=== PATIENT | female | born 1990 | race Caucasian/White ===

== ENCOUNTER 2017-03-13 18:32 | Emergency (ER) | payer OTHER ==
[2017-03-13 18:50] VITALS: BP 137/78; PULSE 77; TEMP 98.2; BMI 39.1
--- NOTE | 2017-03-13 19:56 | PDOC ---
History of Present Illness - General Chief Complaint: Pain Stated Complaint: STOMACH PAIN/irregular period/heavy bleeding Time Seen by Provider: 03/13/17 19:56 History Source: Patient - History of Present Illness Initial Comments: 03/13/17 20:10 CC: Vaginal Bleed Patient is a 26 y.o. female with no reported PMH who presents today c/o a 2 month h/o vaginal spotting (1 pad/hour) the week after her period. Patient states her periods are regular (every 30 days) and usually last a week. Patient denies any shortness of breath, lightheadedness or weakness. Patient states a concern that she had Ovarian CA (mother has h/o breast cancer) prompting her visit to the ED. Surgical: none FH: Breast CA (mother) Social: (-) nicotine, (-) 3-4 drinks/monthly), (-) marijana/cocaine/heroin PMD: None NKDA Past History - Past Medical History Allergies/Adverse Reactions: Allergies Allergy/AdvReac Type Severity Reaction Status Date / Time No Known Allergies Allergy Verified 03/13/17 18:50 Home Medications: Ambulatory Orders Vit/Iron Fumarate/FA [ Tablet] 1 each PO DAILY 09/28/15 Ferrous Sulfate 1 tab PO DAILY 10/04/15 Ibuprofen [Motrin -] 400 mg PO QID #28 tablet 10/08/15 Ibuprofen [Motrin -] 600 mg PO QID #28 tablet 10/08/15 Asthma: No Cancer: No Cardiac Disorders: No Diabetes: No HTN: No Seizures: No Thyroid Disease: No - Immunization History Immunization Up to Date: Yes - Suicide/Smoking/Psychosocial Hx Smoking History: Never smoked Have you smoked in the past 12 months: No Information on smoking cessation initiated: No Hx Alcohol Use: No Drug/Substance Use Hx: No Substance Use Type: None Hx Substance Use Treatment: No *Physical Exam - Vital Signs Last Vital Signs Temp Pulse Resp BP Pulse Ox 98.2 F 77 18 137/78 100 03/13/17 18:46 03/13/17 18:46 03/13/17 18:46 03/13/17 18:46 03/13/17 18:46 - Physical Exam General Appearance: Yes: Nourished, Appropriately Dressed, Obese HEENT: positive: EOMI, PRATIBHA, Other (Hirsuitism) Neck: positive: Trachea midline, Supple Respiratory/Chest: positive: Lungs Clear, Normal Breath Sounds Cardiovascular: positive: Regular Rhythm, Regular Rate, S1, S2 Female Pelvic Exam: positive: cervical os closed, vaginal bleeding (minimal amount of dark red blood appreciated in vaginal vault, cervical os closed, no active bleed) Gastrointestinal/Abdominal: positive: Soft Extremity: positive: Normal Capillary Refill, Normal Inspection Integumentary: positive: Normal Color, Dry, Warm Neurologic: positive: Fully Oriented, Alert ED Treatment Course - LABORATORY CBC & Chemistry Diagram: 03/13/17 21:00 Medical Decision Making - Medical Decision Making 03/13/17 20:18 Patient is a 26 y.o. female who presents c/o vaginal bleeding 1 week post menstrual cycle. Initial DDx includes fibroids vs. spontaneous . PLAN: 1. CBC, Urine 2. Pelvic Exam 3. Transvaginal U/S 4. UA 03/13/17 22:56 Urine negative. Pelvic exam showed closed cervical OS and minimal amount of dark red blood in vaginal vault with no active bleed and closed cervical os. CBC showed no anemia however, WBC 12 (likely reactive leukocytosis ) as UA negative for infection. Transvaginal U/S showed no fibroids but mutiples small cysts and follicles in ovaries B/L. Patient discharged with referral to [facility] to establish primary care and for evaluation of possible PCOS. 03/13/17 23:36 *DC/Admit/Observation/Transfer Diagnosis at time of Disposition: Vaginal bleeding between periods - Discharge Dispostion Disposition: HOME Condition at time of disposition: Good Admit: No - Referrals Referrals: Miles Velasco MD [Staff Physician] - - Patient Instructions Printed Discharge Instructions: DI for Vaginal Bleeding Additional Instructions: Please call [facility] at [phone] to establish a primary care doctor for evaluation of vaginal bleeding as well as possible polycystic ovarian syndrome. Also call the [facility] doctor (Dr. Velasco) for a follow up appointment within 1-2 weeks. A copy of your ultrasound report has been provided to you. Please bring this to your PCP and [facility] appointment. We understand that you had some concerns for cancer given your family history. While we can not fully evaluate for cancer in the emergency department, it is important to follow up with your primary doctor and [facility] doctor for a work up to rule out cancer. Please return to the ED should you have any increased severity in your symptoms.
--- NOTE | 2017-03-13 20:43 | PDOC ---
Attending Attestation - Resident Resident Name: Jhoana Luo - ED Attending Attestation I have performed the following: I have examined & evaluated the patient, The case was reviewed & discussed with the resident, I agree w/resident's findings & plan, Exceptions are as noted - HPI HPI: 03/13/17 20:35 26yo F p/w vaginal bleeding. LMP 2 weeks ago. She bled for 5-6 days and then period ended. Today she noted vaginal bleeding with clots, changing 1 pad per hour for 4 hours. She then became concerned she may have ovarian ca as her mom had breast ca after she researched her symptoms on google. She was also concerned for PCOS as she notes facial hair since her last . Does not have a PMD. No abd cramping. NO treatments tried. Sexually active with 1 partner. Denies other symptoms of dizziness, CP, SOB, fevers, chills, N/V/D, weakness, headache, vaginal dc. Pt reports vaginal bleeding has slowed down since she has arrived in the ED. She reports similar bleeding in between period' s on and off for years. - Physicial Exam PE: 03/13/17 20:43 GENERAL: Awake, alert, and fully oriented, in no acute distress HEAD: No signs of trauma EYES: PERRLA, EOMI, sclera anicteric, conjunctiva clear ENT: Auricles normal inspection, hearing grossly normal, nares patent, oropharynx clear without exudates. Moist mucosa NECK: Normal ROM, supple, no lymphadenopathy, JVD, or masses LUNGS: Breath sounds equal, clear to auscultation bilaterally. No wheezes, and no crackles HEART: Regular rate and rhythm, normal S1 and S2, no murmurs, rubs or gallops ABDOMEN: Soft, nontender, normoactive bowel sounds. No guarding, no rebound. No masses EXTREMITIES: Normal range of motion, no edema. No clubbing or cyanosis. No cords, erythema, or tenderness NEUROLOGICAL: Normal speech, cranial nerves intact, negative pronator drift, 5/ 5 strength in all 4 extremities, normal sensation to light touch in all 4 extremities, normal cerebellar exam, normal gait, normal reflexes and tone SKIN: Warm, Dry, normal turgor, no rashes or lesions noted. Pelvic exam performed by Dr. Luo under my direct supervision: os closed, scant dark red blood in vault with no active bleeding, no clots, no midline or adnexal ttp, no CMT. - Medical Decision Making 03/13/17 20:44 26-year-old female presents with vaginal bleeding. Vitals unremarkable. Differential includes dysfunctional uterine leading versus fibroids versus PCOS versus . -UPT -CBC -TVUS -reassess 03/14/17 04:29 UPT negative. CBC wnl. TVUS with multiple small cysts on b/l ovaries. No fibroids. No further bleeding in ED. Vitals stable. Possible DUB 2/2 PCOS but pt will require more workup for an official diagnosis. I discussed the physical exam findings, ancillary test results and final diagnoses with the patient. I answered all of the patient's questions. The patient was satisfied with the care received and felt comfortable with the discharge plan and treatment plan. The patient will call their primary care physician within 24 hours to arrange follow-up and will return to the Emergency Department with any new, persistent or worsening symptoms.
[2017-03-13 21:08] LABS: BASOPHIL 0.4 % (0-2.0); EOSINOPHIL 0.8 % (0-4.5); MCHC 33.2 g/dl (32.0-36.0); MEAN CELL VOLUME 90.6 fl (80-96); MEAN PLT VOLUME 9.9 fl (7.5-11.1); NEUTROPHILS 56.5 % (42.8-82.8); PLATELET COUNT 270 K/MM3 (134-434); RDW 13.3 % (11.6-15.6); WHITE BLOOD COUNT 12.1 K/mm3 (4.0-10.0)
[2017-03-13 23:26] LABS: URINE APPEARANCE SLCLOUDY; URINE BILIRUBIN NEGATIVE (NEGATIVE); URINE BLOOD 3+ (NEGATIVE); URINE COLOR YELLOW; URINE GLUCOSE (UA) NEGATIVE (NEGATIVE); URINE KETONE NEGATIVE (NEGATIVE); URINE LEUK ESTERASE TRACE (NEGATIVE); URINE NITRITE NEGATIVE (NEGATIVE); URINE PROTEIN NEGATIVE (NEGATIVE); URINE UROBILINOGEN NEGATIVE mg/dL (0.2-1.0)
== END 2017-03-14 00:45 | disposition home or self-care (01) ==
LOC: JER 18:32
DX: N92.0 Excessive and frequent menstruation with regular cycle (principal)
CPT/HCPCS: 36415; 76830-TC; 81003; 81015; 84703; 85025; 99283-25

== ENCOUNTER → 2021-04-20 | Emergency (ER) | payer OTHER ==
[~2021-04-20] MED LIST: BACITRACIN 15 GM TUBE TOPICAL OINTMENT TP ONE
[2021-04-20 22:40] VITALS: BP 126/78; PULSE 105; TEMP 97.5; BMI 51.0
== END | disposition home or self-care (01) ==
LOC: JERFT 22:27
DX: S50.811A Abrasion of right forearm, initial encounter (principal); W50.4XXA Accidental scratch by another person, initial encounter
CPT/HCPCS: 99283-25